=== PATIENT | female | born 1955 | race American Indian/Alaskan Native ===

== ENCOUNTER 2018-09-29 09:07 | Day surgery (SDC) | payer OTHER ==
[~2018-09-29 09:07] MED LIST: ANCEF/STERILE WATER 2 GM/20 ML 2 GM/20 ML SYRINGE IV NR; LACTATED RINGERS 1,000 ML IV SCH; NEURONTIN PO SCH; TYLENOL PO SCH
[2018-09-29] MEDS ORDERED: PERCOCET 5/325 PO PRN (10:15)
[2018-09-29] MEDS ORDERED: SUBLIMAZE IV PRN (10:15)
--- NOTE | 2018-09-29 10:17 | Anesthesia Consultation ---
Anesthesia Consult and Med Hx Date of service: 09/29/18 - Airway Anesthetic Teeth Evaluation: Partials ROM Head & Neck: Adequate Mental/Hyoid Distance: Adequate Mallampati Class: Class II Intubation Access Assessment: Probably Good - Pulmonary Exam CTA: Yes - Cardiac Exam Cardiac Exam: RRR - Pre-Operative Health Status ASA Pre-Surgery Classification: ASA2 Proposed Anesthetic Plan: MAC - Pulmonary Hx Smoking: No Hx Asthma: Yes (no inhaler use in several years) - Cardiovascular System Hx Hypertension: No Hx Heart Attack/AMI: No - Central Nervous System CVA: No Hx Psychiatric Problems: No - Gastrointestinal Hx Gastroesophageal Reflux Disease: No - Endocrine Hx Renal Disease: No Hx Liver Disease: No Hx Insulin Dependent Diabetes: No Hx Non-Insulin Dependent Diabetes: No Hx Thyroid Disease: No - Other Systems Hx Obesity: No - Additional Comments Anesthesia Medical History Comments: No hx anesthetic complications.
--- NOTE | 2018-09-29 10:17 | Anesthesia Day of Surgery ---
Anesthesia Day of Surgery - Day of Surgery Patient Examined: Yes Patient H&P Reviewed: Yes Patient is NPO: Yes
[2018-09-29] MEDS ORDERED: DIPRIVAN 10 MG/ML IV ONE ×2 (10:54)
[2018-09-29] MEDS ORDERED: VERSED ONE (10:54)
[2018-09-29] MEDS ORDERED: SUBLIMAZE ONE (10:54)
[2018-09-29] MEDS ORDERED: VERSED IV SCH (11:00)
[2018-09-29] MEDS ORDERED: XYLOCAINE 1% 20 mL ONE (11:06)
[2018-09-29] MEDS ORDERED: MARCAINE 0.5% INFILTRATI ONE ×2 (11:06→11:38)
[2018-09-29] MEDS ORDERED: XYLOCAINE 1%/ EPI 1:100,000 INFILTRATI ONE (11:38)
--- NOTE | 2018-09-29 12:15 | Short Stay Summary ---
Short Stay Documentation Date of service: 09/29/18 - History H&P: obtained from office - Allergies and Medications Current Medications: Allergies hydrocodone Allergy (Verified 09/28/18 11:44) Severe Itch and Hallucination Home Medications Medication Instructions Recorded Confirmed Last Taken Type No Known Home Medications [No 09/28/18 09/28/18 Unknown History Reported Home Medications] Active Medications Acetaminophen (Tylenol) 1,000 mg PO PREOP JOYCE Last Admin: 09/29/18 10:19 Dose: 1,000 mg Documented by: Fentanyl (Sublimaze) 50 mcg IV Q5MIN PRN PRN Reason: Pain , Severe (7-10) Stop: 09/29/18 23:59 Gabapentin (Neurontin) 600 mg PO PREOP JOYCE Last Admin: 09/29/18 09:30 Dose: 600 mg Documented by: Cefazolin Sodium (Ancef/Sterile Water 2 Gm/20 Ml) 2 gm in 20 mls @ 80 mls/hr IV PREOP NR; Protocol Stop: 09/29/18 23:59 Lactated Ringer's (Lactated Ringers) 1,000 mls @ 75 mls/hr IV DIRECT JOYCE Last Admin: 09/29/18 09:45 Dose: 75 mls/hr Documented by: Midazolam HCl (Versed) 2 mg IV PREOP JOYCE Stop: 09/29/18 23:59 Last Admin: 09/29/18 10:18 Dose: 2 mg Documented by: Oxycodone/Acetaminophen (Percocet 5/325) 1 tab PO ONCE PRN PRN Reason: Pain, Moderate (4-6) Stop: 09/29/18 23:59 - Physical exam General appearance: no acute distress Integumentary: no rash, no abnormal pigmentation Lungs: Normal air movement Neurological: Normal speech - Brief post op/procedure progress note Date of procedure: 09/29/18 (dictation:[id number]) Pre-op diagnosis: left arm lipoma Post-op diagnosis: same Procedure: Open Excision of left arm lipoma IVF 500cc Findings: 1.5 x 5 x 9cm lipomatous mass surrounding tissue normal Surgeon: DON TADEO Estimated blood loss: minimal Pathology: list (lipoma) Specimen disposition: to lab Condition: stable - Hospital course Hospital course: uneventful - Disposition Condition at discharge: Stable Disposition: - TO HOME OR SELFCARE Short Stay Discharge Plan Activity: other (light activity for 1 week) Diet: regular Wound: open to air, keep clean and dry, other (May shower tomorrow. Pat dry wound. Apply ice pack for 10-15min/4-5 times a day. ) Special Instructions: no heavy lifting (or strenuous activity with left arm for 1 week) Additional Instructions: ACTIVITY: LIGHT ACTIVITY FOR 1 WEEK DIET: REGULAR WOUND: OPEN TO AIR, KEEP CLEAN AND DRY, MAY SHOWER TOMORROW, PAT DRY WOUND, APPLY ICE PACK FOR 10-15 MINUTES/4-5 TIMES A DAY SPECIAL INSTRUCTIONS: NO HEAVY LIFTING OR STRENUOUS ACTIVITY WIT LEFT ARM FOR 1 WEEK Follow up with: DEEPIKA SILVA MD [Primary Care Provider] - 7 Days DON TADEO MD [Staff Physician] - 14 Days Forms: Outpatient Surgery DC Inst. Prescriptions: oxyCODONE /ACETAMINOPHEN [Percocet 5/325 mg] 1 tab PO Q6HR PRN #10 tablet PRN Reason: Pain , Severe (7-10)
[2018-09-29 12:42] VITALS: BP 112/54
--- NOTE | 2018-09-29 14:50 | Post Anesthesia Evaluation ---
- Post Anesthesia Evaluation Patient Participated: Yes Airway Patent: Yes Stable Respiratory Function: Yes Nausea/Vomiting: No Temp > 96.8F: Yes Pain Manageable: Yes Adequeate Hydration: Yes Anesthesia Complications: No
--- NOTE | 2018-09-29 16:53 | Operative Report ---
PREOPERATIVE DIAGNOSIS: Recurrent left arm lipoma. POSTOPERATIVE DIAGNOSIS: Recurrent left arm lipoma. PROCEDURE: Open excision of left arm lipoma. ATTENDING PHYSICIAN: Cristal Carrington MD ANESTHESIA: Local MAC. ESTIMATED BLOOD LOSS: Minimal. FLUIDS: 500 mL. FINDINGS: A 1.5 x 5 x 9 cm lipomatous mass. DRAINS: None. COMPLICATIONS: None. DISPOSITION: Stable, transferred to recovery room. INDICATIONS: This is a 63-year-old female who presents to the office with complaint of recurrent mass in the outer aspect of the left upper arm. The patient was assessed to have a lipomatous recurrence. Procedure, risks and benefits were explained to the patient. Risks included but were not limited to infection, bleeding, pain, injury to surrounding structures, possible need for further procedures in the future. The patient understood and consented. OPERATIVE NOTE: The patient was brought to the operating room and placed on the table in supine position. After adequate sedation was established, the patient was prepped and draped in the usual sterile fashion. Antibiotics had been administered prior to start of the case. SCDs were in place. I began by anesthetizing the planned incision site as well as the surrounding tissue with 1% lidocaine and 0.5% Marcaine with epinephrine. We used a part of her old incision and extended anteriorly to cover the entire mass. I was able to dissect quickly down on top of the mass and then I shelled it out from the surrounding tissue. There were some attachments to the surrounding tissue and to the underlying fascia that I divided with the electrocautery device. We got the mass out in 3 separate pieces as it was so large. We dissected down into the muscular fascia, but did not violate it. We were in the subcutaneous space. We used a combination of blunt and electrocautery dissection to remove the mass from the subcutaneous space. This was an open resection. Once the mass had been removed, we thoroughly irrigated out the wound. Hemostasis was achieved with electrocautery. I checked the surrounding tissue to make sure there was no residual mass. It appeared to me the residual tissue, although now more prominent and it was not part of the lipomatous mass. I think that is her normal tissue. I checked at least 2 or 3 times just to make sure there was nothing left. Once we were sure that everything looked good, I then elevated the surrounding tissue, just a little bit to reduce tension on the closure. I used 3-0 Vicryl to close the dermal layer with interrupted stitches. The skin was closed with a running 4-0 Monocryl subcuticular stitch. Skin was cleaned and dried and Dermabond was placed. The patient tolerated the procedure well. There were no complications. All counts were correct at the end of the case. JOB# [id number] JOSE/ALEX
== END 2018-09-29 13:30 | disposition home or self-care (01) ==
LOC: OR 09:07
PROVIDERS: ATTEND Surgery
DX: D17.22 Benign lipomatous neoplasm of skin and subcutaneous tissue of left arm (principal); J45.909 Unspecified asthma, uncomplicated; Z90.710 Acquired absence of both cervix and uterus; Z98.891 History of uterine scar from previous surgery; Z79.899 Other long term (current) drug therapy; Z98.890 Other specified postprocedural states; Z80.3 Family history of malignant neoplasm of breast; Z80.1 Family history of malignant neoplasm of trachea, bronchus and lung; Z88.8 Allergy status to other drugs, medicaments and biological substances
CPT/HCPCS: 24071; 88304; J0690; J2250; J2704; J3010; J7120